=== PATIENT | male | born 1985 ===

== ENCOUNTER 2017-06-30 00:28 | Emergency (ER) | payer OTHER ==
[2017-06-30 01:04] VITALS: BMI 25.8
[2017-06-30 01:06] VITALS: BP 129/79; PULSE 81; RESP 18; TEMP 98; O2SAT 97
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
== END 2017-06-30 03:07 | disposition home or self-care (01) ==
LOC: ED 00:28
DX: S02.2XXA Fracture of nasal bones, initial encounter for closed fracture (principal); S01.81XA Laceration without foreign body of other part of head, initial encounter; Y04.8XXA Assault by other bodily force, initial encounter; Y93.89 Activity, other specified; Y92.89 Other specified places as the place of occurrence of the external cause

== ENCOUNTER 2018-08-07 15:30 | Emergency (ER) | payer OTHER ==
--- NOTE | 2018-08-07 15:42 | ED PDOC ---
Arrival/HPI - General Historian: Patient - History of Present Illness Narrative History of Present Illness (Text): 08/07/18 16:14 33 year old male with no past medical history who comes in after cleaning her attic at home, when she reports getting something in her eye. Patient reports flushing the eye at home, however the sensation of an object in her eye was still there. Patient denies contact or eye glass use. Patient denies any trauma to the area. Patient denies any fevers, chills, conjunctival discharge, vision changes, chest pain, shortness of breath , or any other complaints. PMD: Denies Medical history: Denies Allergies: Denies Surgical history: Denies Medications: Denies Time/Duration: 4-6 hours Symptom Onset: Sudden Symptom Course: Unchanged Quality: Other Severity Level: 2 Activities at Onset: Rest Context: Sitting <Matthew Khan - Last Filed: 08/07/18 18:25> <Joe Wahl - Last Filed: 08/07/18 18:37> - General Time Seen by Provider: 08/07/18 15:32 Past Medical History - Provider Review Nursing Documentation Reviewed: Yes - Travel History Have you recently traveled outside [place] w/in the past 3 mons?: No - Infectious Disease Hx of Infectious Diseases: None - Tetanus Immunization Tetanus Immunization: Up to Date - Psychiatric Hx Substance Use: No - Anesthesia Hx Anesthesia: No Hx Anesthesia Reactions: No Hx Malignant Hyperthermia: No <Matthew Khan - Last Filed: 08/07/18 18:25> Family/Social History - Physician Review Nursing Documentation Reviewed: Yes Family/Social History: No Known Family HX Smoking Status: Never Smoked Hx Alcohol Use: No Hx Substance Use: No <Mattehw Khan - Last Filed: 08/07/18 18:25> Allergies/Home Meds <Matthew Khan - Last Filed: 08/07/18 18:25> <Joe Wahl - Last Filed: 08/07/18 18:37> Allergies/Adverse Reactions: Allergies No Known Allergies Allergy (Verified 08/07/18 15:52) Home Medications: Home Meds Medication Instructions Recorded Confirmed RX: No Known Home Med 08/07/18 08/07/18 Review of Systems - Physician Review All systems were reviewed & negative as marked: Yes - Review of Systems Constitutional: Normal. absent: Fatigue, Weight Change Eyes: Normal, Other (Foreign body in eye). absent: Vision Changes ENT: Normal. absent: Hearing Changes, Rhinorrhea Respiratory: Normal. absent: SOB, Cough Cardiovascular: Normal. absent: Chest Pain, Syncope Gastrointestinal: Normal. absent: Abdominal Pain, Vomiting Musculoskeletal: Normal. absent: Arthralgias, Back Pain Skin: Normal. absent: Rash, Skin Lesions Neurological: Normal. absent: Headache, Dizziness Endocrine: Normal. absent: Diaphoresis Hemo/Lymphatic: Normal. absent: Adenopathy Psychiatric: Normal. absent: Anxiety <Matthew Khan - Last Filed: 08/07/18 18:25> Physical Exam Vital Signs Reviewed: Yes Temperature: Afebrile Blood Pressure: Normal Pulse: Regular Respiratory Rate: Normal Appearance: Positive for: Well-Appearing, Non-Toxic, Comfortable Pain Distress: None Mental Status: Positive for: Alert and Oriented X 3. No: Confused - Systems Exam Head: Present: Atraumatic, Normocephalic Pupils: Present: PERRL, Other (Visual acuity intact, Flourescein stain negative for any corneal abrasion or globe rupture.). No: Sluggish, Non-Reactive Extroacular Muscles: Present: EOMI. No: Gaze Palsy, Entrapment Conjunctiva: Present: Normal, Other (Visual acuity intact, Flourescein stain negative for any corneal abrasion or globe rupture.). No: Injected Mouth: Present: Moist Mucous Membranes. No: Dry, Normal Teeth Neck: Present: Normal Range of Motion. No: Meningeal Signs, JVD Respiratory/Chest: Present: Clear to Auscultation, Good Air Exchange. No: Wheezes, Tachypneic Cardiovascular: Present: Regular Rate and Rhythm, Normal S1, S2 Abdomen: Present: Normal Bowel Sounds. No: Tenderness, Guarding, McBurney's Point Tender Upper Extremity: Present: Normal Inspection. No: Cyanosis, Edema Lower Extremity: Present: Normal Inspection. No: Edema Neurological: Present: CN II-XII Intact, Speech Normal Skin: Present: Dry, Normal Color. No: Rashes Psychiatric: Present: Alert, Oriented x 3, Normal Insight <Matthew Khan - Last Filed: 08/07/18 18:25> Vital Signs Temp Pulse Resp BP Pulse Ox 08/07/18 16:23 98.1 F 69 19 99 08/07/18 15:47 97.7 F 73 18 138/71 98 <Joe Wahl - Last Filed: 08/07/18 18:37> Medical Decision Making ED Course and Treatment: 08/07/18 16:11 33 year old male with no past medical history presents after getting something stuck in his eye when cleaning his house. Foreign object vs. Corneal abrasion. Plan: Florescein scan Irrigation of eye Visual acuity intact, Flourescein stain negative for any corneal abrasion or globe rupture. Eye irrigated. Reassesed and improved. Patient will be discharged. <Matthew Khan - Last Filed: 08/07/18 18:25> ED Course and Treatment: Seen and examined with resident. 33 year old M p/w L eye pain. On exam, no abrasion, no foreign object. <Joe Wahl - Last Filed: 08/07/18 18:37> Disposition/Present on Arrival - Present on Arrival Any Indicators Present on Arrival: No History of DVT/PE: No History of Uncontrolled Diabetes: No Urinary Catheter: No History Surgical Site Infection Following: None - Disposition Have Diagnosis and Disposition been Completed?: Yes Disposition Time: 16:17 Patient Plan: Discharge <Matthew Khan - Last Filed: 08/07/18 18:25> <Joe Wahl - Last Filed: 08/07/18 18:37> - Disposition Diagnosis: Foreign body, eye Disposition: HOME/ ROUTINE Condition: IMPROVED Additional Instructions: 1. F/u with PMD within 2 days of discharge. 2.F/u with Opthalmology within 2 days of discharge. 3. Return to hospital for any new or worsening symptoms. Referrals: Shin Garcia MD [Staff Provider] - Follow up with primary
[2018-08-07 15:47] VITALS: BP 138/71; BMI 27.2
[2018-08-07 16:24] VITALS: PULSE 69; RESP 19; TEMP 98.1; O2SAT 99
== END 2018-08-07 16:24 | disposition home or self-care (01) ==
LOC: ED 15:30
DX: T15.92XA Foreign body on external eye, part unspecified, left eye, initial encounter (principal); X58.XXXA Exposure to other specified factors, initial encounter

== ENCOUNTER 2018-12-08 12:34 | Emergency (ER) | payer OTHER ==
[2018-12-08 12:35] VITALS: BMI 27.2
[2018-12-08 13:05] VITALS: RESP 18
--- NOTE | 2018-12-08 13:19 | ED PDOC ---
Arrival/HPI - General Chief Complaint: Abnormal Skin Integrity Time Seen by Provider: 12/08/18 12:36 Historian: Patient - History of Present Illness Time/Duration: Other (three days) Symptom Onset: Gradual Symptom Course: Worsening Severity Level: Mild Associated Symptoms (Text): 12/08/18 13:16 Patient complains of a 3-day history of a small ingrown hair at the left angle of his jaw. He has been picking at it, but it is no better. It is self draining, but now getting larger. No fever or chills. No streaking. Past Medical History - Infectious Disease Hx of Infectious Diseases: None - Tetanus Immunization Tetanus Immunization: Up to Date - Psychiatric Hx Substance Use: No - Anesthesia Hx Anesthesia: No Hx Anesthesia Reactions: No Hx Malignant Hyperthermia: No Family/Social History - Physician Review Nursing Documentation Reviewed: Yes Family/Social History: Unknown Family HX Smoking Status: Light Smoker < 10 Cigarettes Daily Hx Alcohol Use: No Hx Substance Use: Yes (Marijuana) Allergies/Home Meds Allergies/Adverse Reactions: Allergies No Known Allergies Allergy (Verified 08/07/18 15:52) Review of Systems - Physician Review All systems were reviewed & negative as marked: Yes Physical Exam Vital Signs Temp Pulse Resp BP Pulse Ox 12/08/18 12:35 98.1 F 54 L 18 129/71 98 Temperature: Afebrile Blood Pressure: Normal Pulse: Regular Respiratory Rate: Normal Appearance: Positive for: Well-Appearing, Non-Toxic, Comfortable Pain Distress: None Mental Status: Positive for: Alert and Oriented X 3 - Systems Exam Pupils: Present: PERRL Extroacular Muscles: Present: EOMI Conjunctiva: Present: Normal Ears: Present: NORMAL TM, Normal Canal. No: Erythema, TM Bulging Mouth: Present: Moist Mucous Membranes Pharnyx: No: ERYTHEMA, EXUDATE, TONSILS ENLARGED Skin: Present: Warm, Dry, Normal Color, Abscess (Small less than 1 cm abscess. Self draining. Minimal erythema. No streaking.). No: Rashes Disposition/Present on Arrival - Present on Arrival Any Indicators Present on Arrival: No History of DVT/PE: No History of Uncontrolled Diabetes: No Urinary Catheter: No History of Decub. Ulcer: No History Surgical Site Infection Following: None - Disposition Have Diagnosis and Disposition been Completed?: Yes Diagnosis: Abscess Disposition: HOME/ ROUTINE Disposition Time: 13:18 Patient Plan: Discharge Condition: GOOD Discharge Instructions (ExitCare): Boil, Skin Abscess Additional Instructions: Moist heat. Follow-up with PMD. Follow-up in ER as needed. Prescriptions: Amoxicillin/Clavulanate [Augmentin 875 MG-125 MG] 1 tab PO Q12 #20 tab
[2018-12-08 13:36] VITALS: BP 132/78; PULSE 72; TEMP 98.2; O2SAT 99
== END 2018-12-08 13:34 | disposition home or self-care (01) ==
LOC: ED 12:34
DX: L02.01 Cutaneous abscess of face (principal)